=== PATIENT | male | born 1995 | race Caucasian/White ===

== ENCOUNTER 2023-06-06 10:49 | Outpatient (CLI) | payer OTHER ==
[2023-06-06] MEDS ORDERED: LIDOCAINE-MPF 1% 5 ML VIAL ONE (11:44)
[2023-06-06] MEDS ORDERED: TRIAMCINOLONE 40 MG/ML VIAL ONE (11:45)
[2023-06-06] MEDS ORDERED: BUPIVACAINE 0.5% PF 10 ML VIAL ONE (11:49)
[2023-06-06] MEDS ORDERED: LIDOCAINE-MPF 1% 5 ML VIAL TD ONE (12:35)
[2023-06-06] MEDS ORDERED: TRIAMCINOLONE 40 MG/ML VIAL IM ONE (12:36)
[2023-06-06] MEDS ORDERED: BUPIVACAINE 0.5% PF 10 ML VIAL IM ONE (12:37)
--- NOTE | 2023-06-06 13:18 | Ultrasound Report ---
PROCEDURE: Injection Single Tendon INDICATIONS: RIGHT SHOULDER PAIN TECHNIQUE: The indications, alternatives, benefits, risks, and complications of the procedure were explained to the patient. Written informed consent was obtained and placed in the chart. The patient was placed in an appropriate position on the fluoroscopy table, and a site was chosen for percutaneous access un ming ultrasound guidance. Local anesthetic was administered using a 1% lidocaine solution. A hypoder mateusz or spinal needle was then used to access the symptomatic joint. Intra-articular location of the needle tip was confirmed by real time ultrasound imaging, followed by steroid administration. The ne edle was then withdrawn, and a bandage applied to the puncture site. FINDINGS: Joint injected: Biceps tendon sheath Medications injected: 4 mL of 40 mg/mL Kenalog and 0.5% Ropivacaine mixture. Complications: None. IMPRESSION: Successful ultrasound guided administration of steroid and anaesthetic solution into rig ht biceps tendon sheath. Reviewed by: Jaime Irene MD on 06/06/2023 1:17 PM PST Approved by: Jaime Irene MD on 06/06/2023 1:17 PM PST Station ID: [id number]
== END 2023-06-06 10:50 | disposition home or self-care (01) ==
LOC: DI 10:49
PROVIDERS: ATTEND Orthopaedic Surgery
DX: M25.511 Pain in right shoulder (principal)
CPT/HCPCS: 20550